=== PATIENT | male | born 1995 | race Caucasian/White ===

== ENCOUNTER 2023-04-05 13:52 | Inpatient (IN) ==
[2023-04-05] MEDS ORDERED: Al Hydrox/Mg Hydrox/Simet LIQ 30 ML UDC PO PRN (14:49)
[2023-04-05] MEDS ORDERED: OLANZapine 10 mg TAB*ODT PO ONE (14:53)
[2023-04-05] MEDS ORDERED: Ziprasidone IM 20 mg VIAL 1 ml VIAL IM ONE (14:55)
[2023-04-05] MEDS ORDERED: diazePAM INJ CARPUJECT 5 MG/ML SYRINGE IM ONE ×2 (15:33→15:55)
[2023-04-05] MEDS ORDERED: diazePAM INJ CARPUJECT 5 MG/ML SYRINGE ONE (15:34)
[2023-04-05] MEDS ORDERED: Dexmedetomidine HCL 120 MCG FILM BUCCAL ONE (16:44)
[2023-04-05 17:07] LABS: ABS Monocytes 0.4 10^3/uL (0.0-1.1); ABS Neutrophils 7.7 10^3/uL (1.5-7.6); ABS Nucleated RBC 0.05 10^3/ul; Eosinophil % 0.1 %; Hematocrit 48.7 % (38-53); Hemoglobin 16.7 g/dL (13.2-16.3); Lymphocyte % 10.9 %; Mean Corpuscular Hgb Conc 34.2 g/dL (31-36); Mean Corpuscular Volume 87.8 fL (80-97); Mean Platelet Volume 8.3 fL (7.5-11.2); Nucleated Red Blood Cells % 0.6 %/100WBC (0.0-0.8); Platelet Count 186 10^3/uL (150-450); Red Blood Count 5.55 10^6/uL (4.06-5.63); Red Cell Distribution Width 13.4 % (12-17); White Blood Count 9.1 10^3/uL (3.6-10.2)
[2023-04-05 17:23] LABS: Albumin 4.8 g/dL (3.2-5.2); Anion Gap 8 mmol/L (2-16); CO2 Carbon Dioxide 24 mmol/L (22-32); Calcium 9.4 mg/dL (8.6-10.3); Chloride 107 mmol/L (101-111); Potassium 3.9 mmol/L (3.5-5.0); Sodium 139 mmol/L (135-145); Total Bilirubin 0.5 mg/dL (0.2-1.0)
[2023-04-05 17:28] LABS: ALT 15 U/L (7-52); AST 25 U/L (13-39); Albumin/Globulin Ratio 1.7 (1-3); Alkaline Phosphatase 69 U/L (35-149); Blood Urea Nitrogen 13 mg/dL (6-24); Creatinine, Serum 0.91 mg/dL (0.67-1.17); Globulin 2.9 g/dL (2-4); Glucose 103 mg/dL (70-100); Total Protein 7.7 g/dL (6.4-8.9); eGFR CKD-EPI 119.2 (>60)
[2023-04-05 18:03] LABS: Acetaminophen < 15 mcg/mL; Alcohol, S < 13 mg/dL (<13); Salicylate < 2.50 mg/dL (<30)
[2023-04-06] MEDS ORDERED: OLANZapine 10 mg TAB*ODT PO PRN (11:44)
[2023-04-07] MEDS ORDERED: OLANZapine IM (NF) 10 MG VIAL IM ONE (10:23)
[2023-04-07] MEDS ORDERED: chlorproMAZINE 25 MG/ML 2 ML (50 MG) ONE ×2 (11:40→11:43)
[2023-04-07] MEDS ORDERED: LORazepam 2 mg VIAL 1 ml IM ONE (11:40)
[2023-04-07] MEDS ORDERED: chlorproMAZINE 25 MG/ML 2 ML (50 MG) IM ONE (11:40)
[2023-04-07] MEDS ORDERED: Lorazepam PYXIS KEY PRN (11:40)
[2023-04-07] MEDS ORDERED: LORazepam 2 mg VIAL 1 ml ONE (11:40)
[2023-04-10] MEDS ORDERED: LORazepam 2 mg VIAL 1 ml ONE (14:59)
[2023-04-10] MEDS ORDERED: chlorproMAZINE 25 MG/ML 2 ML (50 MG) ONE (15:00)
[2023-04-10] MEDS ORDERED: chlorproMAZINE 25 MG/ML 2 ML (50 MG) IM ONE (15:44)
[2023-04-10] MEDS ORDERED: Lorazepam PYXIS KEY PRN (15:44)
[2023-04-10] MEDS ORDERED: LORazepam 2 mg VIAL 1 ml IM ONE (15:44)
[2023-04-11] MEDS ORDERED: LORazepam 2 mg VIAL 1 ml ONE (11:00)
[2023-04-11] MEDS ORDERED: chlorproMAZINE 25 MG/ML 2 ML (50 MG) ONE (11:00)
[2023-04-12] MEDS ORDERED: LORazepam 2 mg VIAL 1 ml IM STA (19:36)
[2023-04-12] MEDS ORDERED: Lorazepam PYXIS KEY PRN (19:36)
[2023-04-12] MEDS ORDERED: chlorproMAZINE 25 MG/ML 2 ML (50 MG) IM STA (19:36)
[2023-04-12] MEDS ORDERED: chlorproMAZINE 25 MG/ML 2 ML (50 MG) ONE (19:38)
[2023-04-12] MEDS ORDERED: LORazepam 2 mg VIAL 1 ml ONE (19:38)
[2023-04-14] MEDS ORDERED: Paliperidone SUSTENNA 234 MG/1.5 ML IM ONE (15:00)
[2023-04-15] MEDS ORDERED: OLANZapine IM (NF) 10 MG VIAL IM ONE (09:47)
[2023-04-15] MEDS: OLANZapine 10 mg TAB*ODT PO SCH (09:51)
[2023-04-15] MEDS ORDERED: Sterile Water for Inj 10 ML ONE (11:33)
[2023-04-15] MEDS ORDERED: OLANZapine 10 mg TAB*ODT PO SCH (21:00)
[2023-04-16] MEDS: OLANZapine 10 mg TAB*ODT PO SCH (10:20)
[2023-04-16] MEDS: OLANZapine IM (NF) 10 MG VIAL IM PRN (10:25)
[2023-04-17] MEDS ORDERED: Sterile Water for Inj 10 ML ONE (08:07)
[2023-04-17] MEDS: OLANZapine IM (NF) 10 MG VIAL IM PRN (08:24)
[2023-04-17] MEDS ORDERED: LORazepam 2 mg VIAL 1 ml ONE (08:25)
[2023-04-17] MEDS: OLANZapine 10 mg TAB*ODT PO SCH (09:13)
[2023-04-18] MEDS ORDERED: Paliperidone SUSTENNA 156 MG/1 ML IM ONE (12:00)
[2023-04-21] MEDS ORDERED: OLANZapine IM (NF) 10 MG VIAL IM PRN (09:42)
[2023-04-21] MEDS ORDERED: OLANZapine IM (NF) 10 MG VIAL IM ONE (09:47)
[2023-04-22] MEDS ORDERED: OLANZapine IM (NF) 10 MG VIAL IM PRN (10:10)
[2023-04-27 10:23] LABS: ABS Eosinophils 0.1 10^3/uL (0.0-0.5); ABS Lymphocytes 1.4 10^3/uL (1.0-4.8); ABS Monocytes 0.2 10^3/uL (0.0-1.1); ABS Neutrophils 2.5 10^3/uL (1.5-7.6); Eosinophil % 1.2 %; Hematocrit 44.8 % (38-53); Hemoglobin 15.4 g/dL (13.2-16.3); Lymphocyte % 33.8 %; Mean Corpuscular Hemoglobin 29.9 pg (27-33); Mean Corpuscular Hgb Conc 34.3 g/dL (31-36); Mean Corpuscular Volume 87.1 fL (80-97); Mean Platelet Volume 8.8 fL (7.5-11.2); Nucleated Red Blood Cells % 0.1 %/100WBC (0.0-0.8); Platelet Count 238 10^3/uL (150-450); Red Blood Count 5.15 10^6/uL (4.06-5.63); Red Cell Distribution Width 13.3 % (12-17); White Blood Count 4.3 10^3/uL (3.6-10.2)
[2023-04-27 10:41] LABS: Albumin 4.6 g/dL (3.2-5.2); Albumin/Globulin Ratio 1.8 (1-3); Calcium 9.3 mg/dL (8.6-10.3); Creatinine, Serum 0.8 mg/dL (0.67-1.17); Globulin 2.6 g/dL (2-4); Potassium 4.1 mmol/L (3.5-5.0); Total Bilirubin 0.3 mg/dL (0.2-1.0); Total Protein 7.2 g/dL (6.4-8.9); eGFR CKD-EPI 125.2 (>60)
[2023-05-06 09:48] VITALS: BP 124/63
== END 2023-05-06 10:00 | DRG 753 ==
LOC: ED 13:52 → EDHOLD 14:49 → BSU 17:07
PROVIDERS: ADMIT Psychiatry & Neurology Psychiatry; ATTEND Psychiatry & Neurology Psychiatry

== ENCOUNTER 2024-04-14 11:47 | Inpatient (IN) ==
[2024-04-14] MEDS: Ziprasidone IM 20 mg VIAL 1 ml VIAL IM ONE (12:15)
[2024-04-14 12:51] LABS: ABS Monocytes 0.4 10^3/uL (0.0-1.1); ABS Neutrophils 4.3 10^3/uL (1.5-7.6); ABS Nucleated RBC 0.02 10^3/ul; Eosinophil % 0.7 %; Hematocrit 47.7 % (38-53); Hemoglobin 16.1 g/dL (13.2-16.3); Lymphocyte % 17.1 %; Mean Corpuscular Hemoglobin 30.1 pg (27-33); Mean Corpuscular Hgb Conc 33.8 g/dL (31-36); Mean Corpuscular Volume 89.1 fL (80-97); Mean Platelet Volume 8.6 fL (7.5-11.2); Nucleated Red Blood Cells % 0.3 %/100WBC (0.0-0.8); Platelet Count 167 10^3/uL (150-450); Red Blood Count 5.35 10^6/uL (4.06-5.63); Red Cell Distribution Width 14.4 % (12-17); White Blood Count 5.8 10^3/uL (3.6-10.2)
[2024-04-14 13:34] LABS: ALT 33 U/L (7-52); AST 46 U/L (13-39); Acetaminophen < 15 mcg/mL; Albumin 4.7 g/dL (3.2-5.2); Albumin/Globulin Ratio 1.7 (1-3); Alcohol, S < 13 mg/dL (<13); Alkaline Phosphatase 64 U/L (35-149); Blood Urea Nitrogen 15 mg/dL (6-24); Calcium 9.2 mg/dL (8.6-10.3); Chloride 101 mmol/L (101-111); Creatinine, Serum 1.02 mg/dL (0.67-1.17); Globulin 2.8 g/dL (2-4); Glucose 132 mg/dL (70-100); Potassium 3.7 mmol/L (3.5-5.0); Salicylate < 2.50 mg/dL (<30); Sodium 139 mmol/L (135-145); Total Bilirubin 0.6 mg/dL (0.2-1.0); Total Protein 7.5 g/dL (6.4-8.9); eGFR CKD-EPI 103.3 (>60)
[2024-04-14 14:12] LABS: Anion Gap 20 mmol/L (2-16); CO2 Carbon Dioxide 18 mmol/L (22-32)
[2024-04-14 20:20] LABS: High Sensitivity Troponin 1 Hr 7 pg/mL (<20)
[2024-04-14 21:26] LABS: Urine Appearance Clear; Urine Bilirubin Negative (Negative); Urine Blood Negative (Negative); Urine Color Yellow; Urine Glucose Negative (Negative); Urine Ketones 2+ (Negative); Urine Nitrite Negative (Negative); Urine Protein Trace (Negative); Urine Specific Gravity 1.028 (1.002-1.030); Urine Urobilinogen Negative (Negative); Urine pH 5.5 (5.0-8.0)
[2024-04-14 21:45] LABS: Urine Benzodiazepine Screen None Detected (None Detect); Urine Cannabinoids Screen Presumptive Positive (None Detect); Urine Opiates Screen None Detected (None Detect)
[2024-04-15] MEDS: Ziprasidone IM 20 mg VIAL 1 ml VIAL IM ONE (10:42)
[2024-04-16] MEDS: Midazolam 5 mg/ml concentrated 5 mg/ml 1 ml VIAL INJ ONE (07:12)
[2024-04-16] MEDS: Ziprasidone IM 20 mg VIAL 1 ml VIAL IM ONE (07:12)
[2024-04-16] MEDS ORDERED: Lorazepam PYXIS KEY PRN (11:53)
[2024-04-16] MEDS ORDERED: Al Hydrox/Mg Hydrox/Simet LIQ 30 ML UDC PO PRN (12:39)
[2024-04-16] MEDS: LORazepam 2 mg VIAL 1 ml IM ONE (12:49)
[2024-04-16] MEDS: chlorproMAZINE 25 MG/ML 2 ML (50 MG) IM ONE (12:49)
[2024-04-17] MEDS: ARIPiprazole LAUROXIL INITIO 675 MG/2.4 ML SYRINGE IM ONE (14:29)
[2024-04-17] MEDS: ARIPiprazole LAUROXIL 882mg/3.2 ml SYRINGE IM ONE (14:30)
[2024-04-30 09:13] VITALS: BP 118/82
== END 2024-04-30 14:07 | disposition home or self-care (01) | DRG 753 ==
LOC: ED 11:47 → EDHOLD 04-16 12:39 → BSU 04-16 14:02
PROVIDERS: ADMIT Psychiatry & Neurology Psychiatry; ATTEND Psychiatry & Neurology Psychiatry